=== PATIENT | male | born 1965 ===

== ENCOUNTER 2018-06-04 07:22 | Emergency (ER) | payer OTHER ==
[~2018-06-04] VITALS: Ht 172.7 cm; Wt 95.7 kg
[2018-06-04] MEDS ORDERED: LIDOCAINE 2% 20 ML (XYLOCAINE) VIAL INJ ONE (07:45)
--- NOTE | 2018-06-04 07:55 | ED Upper Extremity ---
General Chief Complaint: Laceration Stated Complaint: FINGER LAC Nursing Triage Note: PT WORKS AT [employer] AND WAS INJURED WHEN HE WAS PULLING A PALET DANIEL AND SLIPPED AND FELL WITH THE PALET DANIEL ROLLING OVER HIS RT HAND, 4TH DIGIT. Nursing Sepsis Screen: No Definite Risk Source: patient Exam Limitations: language barrier History of Present Illness Date Seen by Provider: Jun 04, 2018 Time Seen by Provider: 07:35 Initial Comments Here with report of right fourth finger distal injury after having palate daniel roll over his fourth finger. Noted immediate bleeding. Bleeding controlled with dressing. There does appear to be avulsion of the skin. Denies other injury. Tetanus is up-to-date. Onset: this morning (0620) Severity: moderate Pain/Injury Location: right 4th finger Method of Injury: direct blow Modifying Factors: Improves With Immobilization; Worse With Movement Allergies and Home Medications Allergies Coded Allergies: No Known Drug Allergies (Unverified , 06/04/18) Home Medications No Active Prescriptions or Reported Meds Patient Home Medication List Home Medication List Reviewed: Yes Review of Systems Constitutional: see HPI; No chills, No fever Respiratory: no symptoms reported Cardiovascular: no symptoms reported Musculoskeletal: see HPI, joint pain, joint swelling, muscle pain Skin: change in color, lesions Psychiatric/Neurological: No Symptoms Reported Past Vxsuffh-Ijeelg-Xmvqlz Hx Past Med/Social Hx: Reviewed Nursing Past Med/Soc Hx Patient Social History Alcohol Use: Occasionally Uses Alcohol Beverage of Choice: Beer Recreational Drug Use: No Smoking Status: Never a Smoker Recent Foreign Travel: No Contact w/Someone Who Travel: No Recent Infectious Disease Expo: No Recent Hopitalizations: No Seasonal Allergies Seasonal Allergies: No Past Medical History Surgeries: No Respiratory: No Cardiac: No Neurological: No Genitourinary: No Gastrointestinal: No Musculoskeletal: No Endocrine: No HEENT: No Cancer: No Psychosocial: No Integumentary: No Family Medical History Reviewed Nursing Family Hx Physical Exam Vital Signs Vital Signs - First Documented 06/04/18 07:34 Temp 98.1 Pulse 86 Resp 20 B/P (MAP) 151/102 (118) Pulse Ox 94 O2 Delivery Room Air Capillary Refill : Less Than 3 Seconds Height, Weight, BMI Height: 5'8.00" Weight: 211lbs. oz. 95.425308ed; BMI Method:Stated General Appearance: WD/WN, no apparent distress Cardiovascular: regular rate, rhythm, no murmur Respiratory: lungs clear, normal breath sounds Hand: Right, laceration, nail injury, soft tissue tenderness, swelling Neurologic/Psychiatric: alert, oriented x 3 Skin: other (laceration with loss of tissue to the right fourth finger on the pad surface.) Procedures/Interventions Wound Location: Upper Extremities Other Wound Location Right fourth finger Wound's Depth, Shape: irregular, flap, contused tissue Wound Explored: contaminated Irrigated w/ Saline (ccs): 500 Betadine Prep?: Yes Anesthesia: 1% Lidocaine (2 percent) Volume Anesthetic (ccs): 8 Wound Debrided: minimal Suture: Ethlion Suture Size: 4-0 Number of Sutures: 4 Layer Closure?: 1 Number Deep Layer Sutures: 0 Sterile Dressing Applied?: Yes Progress Closure of flap although there is tissue loss to the pad surface of the fourth finger approximately 1 x 2 cm. Wound approximately 2 cm and closed with 4 simple interrupted sutures to approximate the flap. Covered with Xeroform gauze and tube dressing. Tolerated procedure well with no complications. Progress/Results/Core Measures Results/Orders My Orders Orders - NUSRAT HOOD MD Lidocaine 2% Injection 20 Ml (Xylocaine (06/04/18 07:45) Finger(S) (06/04/18 07:44) Lidocaine 2% Pf 5 Ml (Xylocaine 2% Pf) (06/04/18 07:58) Cephalexin Capsule (Keflex Capsule) (06/04/18 09:00) Medications Given in ED Current Medications Medications Dose Ordered Sig/Melquiades Route Start Time Stop Time Status Last Admin Dose Admin Lidocaine HCl 5 ml STK-MED ONCE .ROUTE 06/04/18 07:58 06/04/18 08:00 DC 06/04/18 08:02 10 ML Vital Signs/I&O 06/04/18 06/04/18 07:34 08:02 Temp 98.1 98.1 Pulse 86 Resp 20 B/P (MAP) 151/102 (118) Pulse Ox 94 O2 Delivery Room Air Blood Pressure Mean: 118 Progress Progress Note : Progress Note Seen and evaluated. Digital block right fourth finger. X-ray right finger. 0855: Digital block very effective. Wound soaked and saline and beta Ceftin then flushed with copious saline. There was a flap that was amiable to closure and this was closed along the thumb side aspect on the palmar surface. 4 sutures used to close this along the edge of the nailbed and approaching the DIP joint. Laceration and crush along the lateral aspect of the nail bed and does not seem to go underneath. Tolerated procedure well with no complications. Discharged home with return precautions. Patient verbalize understanding instructions and agreement with plan. All discussions through health analyst services. Diagnostic Imaging Diagonstic Imaging: Xray Plain Films/CT/US/NM/MRI: other Comments NAME: [facility] REC#: [id number] PT STATUS: REG ER : 1965 PHYSICIAN: NUSRAT HOOD MD ADMIT DATE: 06/04/18/ER Draft Date of Exam:06/04/18 FINGER(S) EXAMINATION: Right fourth finger, 3 views. Right hand, single view. COMPARISON: None. HISTORY: 53-year-old male, injury. Fourth digit pain. FINDINGS: There is a contour abnormality of the soft tissues at the level of the fourth distal interphalangeal joint and fourth distal phalanx compatible with site of soft tissue injury. There is no identified radiopaque foreign body. There is no identified acute fracture. There is no subluxation or dislocation. IMPRESSION: 1. Soft tissue injury at the level of the fourth distal interphalangeal joint and fourth distal phalanx. 2. No radiopaque foreign body. 3. No identified fracture, subluxation, or dislocation. Dictated on workstation # [id number] Dict: 06/04/18817 Trans: 06/04/18822 [facility] [id number] Interpreted by: CARLOS ALBERTO ALFRED MD Electronically signed by: Reviewed: Reviewed by Me Departure Impression Primary Impression: Crushing injury of right ring finger, initial encounter Additional Impression: Laceration of right ring finger Qualified Codes: S61.214A - Laceration without foreign body of right ring finger without damage to nail, initial encounter Disposition: HOME, SELF-CARE Condition: Improved Departure-Patient Inst. Decision time for Depature: 09:03 Referrals: BRIAN NAIR DO Patient Instructions: Laceration Repair With Stitches (DC) Add. Discharge Instructions: All discharge instructions reviewed with patient and/or family. Voiced understanding. Return on Saturday for wound check and dressing change. You will follow-up with Dr. Nair on Saturday. Call for appointment time. Return for worse pain, fever , swelling, red streaks up the hand or arm, foul-smelling drainage or other concerns as needed. Scripts Hydrocodone Bit/Acetaminophen (Hydrocodone/Acetaminophen 5/325mg Tablet) 1 Tab Tab 1 EACH PO Q4-6HR PRN for PAIN-MODERATE MDD 10, #12 TAB Prov: NUSRAT HOOD MD 06/04/18 Cephalexin (Cephalexin) 500 Mg Tablet 500 MG PO QID, #20 TAB 0 Refills Prov: NUSRAT HOOD MD 06/04/18 NUSRAT HOOD MD Jun 04, 2018 07:55
[2018-06-04] MEDS ORDERED: LIDOCAINE PF 2% 5 ML (XYLOCAINE) VIAL ONE (07:58)
--- NOTE | 2018-06-04 08:24 | Diagnostic Imaging Report ---
EXAMINATION: Right fourth finger, 3 views. Right hand, single view. COMPARISON: None. HISTORY: 53-year-old male, injury. Fourth digit pain. FINDINGS: There is a contour abnormality of the soft tissues at the level of the fourth distal interphalangeal joint and fourth distal phalanx compatible with site of soft tissue injury. There is no identified radiopaque foreign body. There is no identified acute fracture. There is no subluxation or dislocation. IMPRESSION: 1. Soft tissue injury at the level of the fourth distal interphalangeal joint and fourth distal phalanx. 2. No radiopaque foreign body. 3. No identified fracture, subluxation, or dislocation. Dictated by: Dictated on workstation # [id number]
[2018-06-04] MEDS ORDERED: CEPHALEXIN 250 MG (KEFLEX) CAP PO ONE (09:00)
[2018-06-04] MEDS ORDERED: CEPH500T PO (09:04)
[2018-06-04] MEDS ORDERED: ACHD5005 PO (09:05)
[2018-06-04 09:36] VITALS: BP 128/97
== END 2018-06-04 09:36 | disposition home or self-care (01) ==
LOC: ER 07:24
DX: S67.194A Crushing injury of right ring finger, initial encounter (principal); S61.214A Laceration without foreign body of right ring finger without damage to nail, initial encounter; W22.8XXA Striking against or struck by other objects, initial encounter
CPT/HCPCS: 12001; 64450; 73140

== ENCOUNTER 2018-06-06 08:02 | Emergency (ER) | payer OTHER ==
[~2018-06-06] VITALS: Ht 167.6 cm; Wt 97.5 kg
[~2018-06-06 08:02] MED LIST: ACHD5005 PO; CEPH500T PO
--- NOTE | 2018-06-06 09:04 | ED Integumentary General ---
General Chief Complaint: Skin/Wound Problems Stated Complaint: WOUND CHECK Nursing Triage Note: ARRIVED VIA AMB TO FAST TRACK ROOM WITH NURSING STUDENTS. STATES HE IS HERE FOR A DRESSING CHANGE TO RIGHT 3RD FINGER AND WAS TOLD TO COME BACK FOR IT. Source: director of field sales History of Present Illness Date Seen by Provider: Jun 06, 2018 Time Seen by Provider: 09:00 Initial Comments The patient is a 53-year-old male who was here yesterday after an accident at work peeled the palmar pad of the right fourth finger and over the distal phalanx. Through the director of field sales it is reported that he has pain and the dressing was changed last night because it bled through. He has an appointment to see Dr. Walters on Saturday. His employer states that there were 4 stitches placed in hopes that this might pull together. Allergies and Home Medications Allergies Coded Allergies: No Known Drug Allergies (Unverified , 06/04/18) Home Medications Cephalexin 500 Mg Tablet, 500 MG PO QID Prescribed by: NUSRAT HOOD on 06/04/18 0904 Hydrocodone Bit/Acetaminophen 1 Tab Tab, 1 EACH PO Q4-6HR PRN for PAIN-MODERATE Prescribed by: NUSRAT HOOD on 06/04/18 0905 Patient Home Medication List Home Medication List Reviewed: Yes Review of Systems Review of Systems Constitutional: see HPI Past Nbgsdzn-Usvluk-Qofhjs Hx Patient Social History Alcohol Use: Denies Use Alcohol Beverage of Choice: Beer Recreational Drug Use: No Smoking Status: Never a Smoker Recent Foreign Travel: No Contact w/Someone Who Travel: No Recent Infectious Disease Expo: No Recent Hopitalizations: No Seasonal Allergies Seasonal Allergies: No Past Medical History Surgeries: No Respiratory: No Cardiac: No Neurological: No Genitourinary: No Gastrointestinal: No Musculoskeletal: No Endocrine: No HEENT: No Cancer: No Psychosocial: No Integumentary: No Physical Exam Vital Signs Vital Signs - First Documented 06/06/18 08:35 Temp 97.5 Pulse 75 Resp 16 B/P (MAP) 118/89 (99) Pulse Ox 98 O2 Delivery Room Air Capillary Refill : Less Than 3 Seconds General Appearance: WD/WN, no apparent distress Comments The tube gauze was removed. The distal pad is avulsed The bed is clean. Procedures/Interventions Suture Size: 4-0 Progress/Results/Core Measures Results/Orders Vital Signs/I&O 11/9/18 08:35 Temp 97.5 Pulse 75 Resp 16 B/P (MAP) 118/89 (99) Pulse Ox 98 O2 Delivery Room Air Blood Pressure Mean: 99 Departure Impression Primary Impression: Encounter for post-traumatic wound check Disposition: HOME, SELF-CARE Condition: Stable/Unchanged Departure-Patient Inst. Referrals: NO,LOCAL PHYSICIAN (PCP) Primary Care Physician Add. Discharge Instructions: All discharge instructions reviewed with patient and/or family. Voiced understanding. I believe this will require a skin graft. Keep clean and dry. See Dr. Walters as scheduled on Saturday. RENALDO IRIZARRY MD Jun 06, 2018 09:04
[2018-06-06 09:15] VITALS: BP 118/89
== END 2018-06-06 09:15 | disposition home or self-care (01) ==
LOC: EDUNIT# 08:02 → ER 08:03
DX: S61.214D Laceration without foreign body of right ring finger without damage to nail, subsequent encounter (principal); X58.XXXD Exposure to other specified factors, subsequent encounter